=== PATIENT | male | born 1960 | race Caucasian/White ===

== ENCOUNTER → 2017-03-07 | Day surgery (SDC) | payer BC ==
[~2017-03-07] MED LIST: LIPITOR20 MG PO; LISINOPRIL20 MG PO
--- NOTE | ~2017-03-07 | OR ---
Unit #: [id number] #: [id number] Patient: SUZANNE MCKEON [id number] [address] [address] [id number] O MR#: [id number] NAME: SUZANNE MCKEON ROOM: Date of Procedure: 03/07/2017 Admission Date: 03/07/2017 Surgeon: Reginaldo Arvizu M.D. : 1960 Attending Physician: Reginaldo Arvizu M.D. Primary Care Physician: Heather Watts A.P.R.N. OPERATIVE REPORT PROCEDURE PERFORMED Colonoscopy with snare polypectomy to cecum. INDICATIONS FOR PROCEDURE Average risk for colorectal cancer. MEDICATIONS Monitored anesthesia. POSTOPERATIVE FINDINGS 1. Polyp 5 mm, ascending colon, snared and sent for histopathology. 2. Diverticulosis. 3. Internal hemorrhoids. PLAN 1. Follow up on the pathology report. 2. Repeat colonoscopy in 5 years. DESCRIPTION OF PROCEDURE The patient was explained of the procedure, risks, and benefits along with risks and benefits of anesthesia. He was brought to the endoscopy room. Propofol anesthesia was given. Rectal exam was done, which was normal. Colonoscope was lubricated, passed up the rectum, advanced under direct vision all the way to the cecum. Cecum was identified by ileocecal valve and appendiceal orifice. Polyp seen in ascending colon was snared and sent for histopathology. I retroflexed in the rectum, small hemorrhoids seen. The scope was gently pulled out. He tolerated it well. Dictated by... Saima Ma/mervat TD: 03/07/2017 13:55 JOB #: [id number] CC: Dilip Dean M.D. Unit #: [id number] #: [id number] Patient: SUZANNE MCKEON OPERATIVE REPORT Page 1 of 1 X Reginaldo Arvizu MD X PROCEDURE OPERATIVE NOTE
== END | disposition home or self-care (01) ==
LOC: COPS 07:03
DX: Z12.11 Encounter for screening for malignant neoplasm of colon (principal); D12.2 Benign neoplasm of ascending colon; K57.30 Diverticulosis of large intestine without perforation or abscess without bleeding; K64.8 Other hemorrhoids; I10 Essential (primary) hypertension; F17.210 Nicotine dependence, cigarettes, uncomplicated; Z79.899 Other long term (current) drug therapy; Z90.49 Acquired absence of other specified parts of digestive tract
CPT/HCPCS: 88305; J2250